=== PATIENT | male | born 1940 | race Asian ===

== ENCOUNTER 2019-02-19 17:17 | Inpatient (IN) | payer OTHER, MEDICAID ==
[~2019-02-19] VITALS: Ht 185.4 cm; Wt 93.5 kg
[2019-02-19 18:01] LABS: BASOPHIL % 0.4 % (0-2); PLATELET COUNT 274 x10^3mcL (130-400); RED CELL DISTRIBUTION WIDTH 13.1 % (11.5-14.5)
[2019-02-19 18:10] LABS: CALCIUM 9.5 mg/dL (8.5-10.1); CARBON DIOXIDE 26.7 mmol/L (21-32); CHLORIDE SERUM 103 mmol/L (98-107); CREATININE SERUM 1.9 mg/dL (0.7-1.3); GLUCOSE SERUM 150 mg/dL (74-106); POTASSIUM SERUM 4.1 mmol/L (3.5-5.1); SODIUM SERUM 139 mmol/L (136-145)
[2019-02-19 18:14] LABS: ALKALINE PHOSPHATASE 49 U/L (46-116); ALT/SGPT 18 U/L (16-63); AST/SGOT 19 U/L (15-37); BILIRUBIN TOTAL 0.53 mg/dL (0.20-1.00); TOTAL PROTEIN, SERUM 7.3 g/dL (6.4-8.2)
[2019-02-19 18:15] LABS: ALBUMIN 3.3 g/dL (3.4-5.0)
[2019-02-19] MEDS ORDERED: [UNRECOGNIZED DRUG - CODE] PO (18:36)
[2019-02-19] MEDS ORDERED: CLOPIDOGREL75 M1 PO (18:36)
[2019-02-19] MEDS ORDERED: FENOFIBRATE MI134 MG PO (18:37)
[2019-02-19] MEDS ORDERED: LIPI20 PO (18:37)
[2019-02-19] MEDS ORDERED: ZETIA10 M1 PO (18:37)
[2019-02-19] MEDS ORDERED: DUTASTERIDE-TA1 EACH PO (18:39)
[2019-02-19] MEDS ORDERED: GOOD SENSE OMEP20 MG PO (18:40)
[2019-02-19] MEDS ORDERED: DEXILANT60 M1 PO (18:40)
[2019-02-19] MEDS ORDERED: DIOVAN40 MG PO (18:40)
[2019-02-19] MEDS ORDERED: TRESIBA100 UNIT/1 SQ (18:41)
[2019-02-19] MEDS ORDERED: HUMI SC (18:42)
[2019-02-19] MEDS ORDERED: HUMALOG100 U/ML (18:42)
[2019-02-19 20:00] LABS: MAGNESIUM 2.1 mg/dL (1.8-2.4); PHOSPHOROUS 3.7 mg/dL (2.5-4.9)
[2019-02-19 20:14] LABS: FREE T4 1.06 ng/dL (0.76-1.46); FREE THYROXINE INDEX 2.8 ug/dL (1.4-4.5); T4(THYROXINE) 7.9 ug/dL (4.7-13.3)
[2019-02-19 21:08] VITALS: BP 138/65
[2019-02-19 21:12] VITALS: Ht 185.4 cm; Wt 93.5 kg
[2019-02-19 21:42] LABS: T3 TOTAL 1.13 ng/mL
[2019-02-19 21:46] LABS: microscopic required? NO
[2019-02-19 22:01] LABS: urine erythrocyte NEGATIVE (NEGATIVE)
[2019-02-19 22:25] VITALS: BP 138/65
[2019-02-20 02:48] LABS: BASOPHIL % 0.3 % (0-2); PLATELET COUNT 232 x10^3mcL (130-400)
[2019-02-20 03:04] LABS: CARBON DIOXIDE 25.3 mmol/L (21-32); CHLORIDE SERUM 104 mmol/L (98-107); GLUCOSE SERUM 208 mg/dL (74-106); MAGNESIUM 1.9 mg/dL (1.8-2.4); PHOSPHOROUS 2.7 mg/dL (2.5-4.9); POTASSIUM SERUM 4.5 mmol/L (3.5-5.1); SODIUM SERUM 138 mmol/L (136-145)
[2019-02-20 05:47] VITALS: BP 125/56
[2019-02-20 09:09] LABS: AMPHETAMINE QUAL UR NONE DETECTED (See below)
[2019-02-20 09:20] VITALS: BP 137/57
[2019-02-20 14:08] VITALS: BP 131/63
[2019-02-20 16:32] VITALS: BP 131/62
[2019-02-20 22:12] VITALS: BP 135/54
[2019-02-21 05:28] VITALS: BP 122/48
[2019-02-21 06:39] LABS: BASOPHIL % 0.1 % (0-2); PLATELET COUNT 237 x10^3mcL (130-400); RED CELL DISTRIBUTION WIDTH 13.1 % (11.5-14.5)
[2019-02-21 06:49] LABS: CALCIUM 8.6 mg/dL (8.5-10.1); CARBON DIOXIDE 24.7 mmol/L (21-32); CHLORIDE SERUM 104 mmol/L (98-107); CREATININE SERUM 2.2 mg/dL (0.7-1.3); GLUCOSE SERUM 260 mg/dL (74-106); PHOSPHOROUS 3.4 mg/dL (2.5-4.9); POTASSIUM SERUM 4.8 mmol/L (3.5-5.1); SODIUM SERUM 137 mmol/L (136-145)
[2019-02-21 08:46] VITALS: BP 145/58
[2019-02-21 12:57] VITALS: BP 123/55
[2019-02-21 16:38] VITALS: BP 130/52
[2019-02-21 21:12] VITALS: BP 132/52
[2019-02-22 06:21] LABS: BASOPHIL % 0.1 % (0-2); PLATELET COUNT 223 x10^3mcL (130-400); RED CELL DISTRIBUTION WIDTH 13.1 % (11.5-14.5)
[2019-02-22 06:23] VITALS: BP 107/56
[2019-02-22 06:35] LABS: CALCIUM 8.6 mg/dL (8.5-10.1); CHLORIDE SERUM 105 mmol/L (98-107); CREATININE SERUM 1.8 mg/dL (0.7-1.3); GLUCOSE SERUM 225 mg/dL (74-106); POTASSIUM SERUM 4.5 mmol/L (3.5-5.1); SODIUM SERUM 139 mmol/L (136-145)
[2019-02-22 09:39] VITALS: BP 137/54
[2019-02-22] MEDS ORDERED: MUCINEX600 MG PO (09:58)
[2019-02-22] MEDS ORDERED: LEVAQUIN750 MG PO (09:59)
[2019-02-22 11:42] VITALS: BP 137/54
[2019-02-22 12:07] VITALS: BP 131/55
== END 2019-02-22 14:51 | disposition home or self-care (01) | DRG 205 ==
LOC: ED 17:17 → DU 19:21
PROVIDERS: Emergency Medicine; General Practice; ADMIT Internal Medicine
DX: M94.0 Chondrocostal junction syndrome [Tietze] (principal); N17.0 Acute kidney failure with tubular necrosis; J44.1 Chronic obstructive pulmonary disease with (acute) exacerbation; I12.9 Hypertensive chronic kidney disease with stage 1 through stage 4 chronic kidney disease, or unspecified chronic kidney disease; E11.22 Type 2 diabetes mellitus with diabetic chronic kidney disease; E11.65 Type 2 diabetes mellitus with hyperglycemia; N18.9 Chronic kidney disease, unspecified; E78.5 Hyperlipidemia, unspecified; Z79.4 Long term (current) use of insulin; Z68.27 Body mass index [BMI] 27.0-27.9, adult
CPT/HCPCS: 82962; 83880; 84439; G0378; J1644; J1815; J1956; J2920; J7030; J7620; J7633; Q0092